=== PATIENT | female | born 1995 | race African-American/Black ===

== ENCOUNTER 2020-12-16 11:33 | Emergency (ER) | payer OTHER ==
[2020-12-16 11:58] VITALS: BMI 26.7
[2020-12-16 13:12] LABS: EPI CELLS >36 /uL (0-25.1); HYALINE CASTS 14 /uL (0-3.1); URINE APPEARANCE CLOUDY; URINE BACTERIA 4186 /uL (0-1359); URINE BILIRUBIN NEGATIVE (NEGATIVE); URINE COLOR YELLOW; URINE GLUCOSE (UA) NEGATIVE (NEGATIVE); URINE KETONE TRACE (NEGATIVE); URINE LEUK ESTERASE 2+ (NEGATIVE); URINE NITRITE NEGATIVE (NEGATIVE); URINE PROTEIN TRACE (NEGATIVE); URINE WBC 624 /uL (0-25.8)
[2020-12-16 14:38] VITALS: BP 107/65; PULSE 82; TEMP 98
== END 2020-12-16 14:56 | disposition home or self-care (01) ==
LOC: JER 11:33
DX: R10.2 Pelvic and perineal pain (principal); Z3A.16 16 weeks gestation of pregnancy
CPT/HCPCS: 76815-TC; 81003; 87086; 87186; 99284-25

== ENCOUNTER 2021-05-30 09:40 | Inpatient (IN) | payer OTHER ==
[2021-05-30] MEDS ORDERED: SODIUM CHLORIDE 100 ML IVPB ONE ×2 (10:45→15:46)
[2021-05-30] MEDS ORDERED: AMPICILLIN SODIUM 2 GM VIAL ONE (10:45)
[2021-05-30] MEDS ORDERED: AMPICILLIN - 2 GM in SODIUM CHLORIDE 100 ML IVPB ONE (11:30)
[2021-05-30 11:40] VITALS: BMI 34.0
[2021-05-30 11:41] LABS: BASO % 0.4 % (0-2.0); EOS % 0.1 % (0-4.5); HEMATOCRIT 35.2 % (32.4-45.2); HEMOGLOBIN 11.5 GM/dL (10.7-15.3); LYMPH % 14.4 % (8-40); MCH 28.7 pg (25.7-33.7); MCHC 32.6 g/dl (32.0-36.0); MEAN CELL VOLUME 88.2 fl (80-96); MEAN PLT VOLUME 9.7 fl (7.5-11.1); MONO % 9.6 % (3.8-10.2); NEUT % 75.5 % (42.8-82.8); PLATELET COUNT 224 10^3/uL (134-434); RBC 3.99 M/mm3 (3.60-5.2); WHITE BLOOD COUNT 13.8 K/mm3 (4.0-10.0)
[2021-05-30] MEDS: DEXTROSE 5%-LACTATED RINGERS 1,000 ML IV SCH (11:43)
[2021-05-30 11:46] LABS: INR 0.94 (0.83-1.09); PROTHROMBIN TIME (PATIENT) 10.8 SEC (9.7-13.0)
[2021-05-30 11:50] LABS: ACTIVATED PTT 27.2 SECONDS (25.2-36.5)
[2021-05-30 11:57] LABS: CALCIUM 9.3 mg/dL (8.5-10.1)
[2021-05-30 11:58] LABS: BLOOD UREA NITROGEN 10.4 mg/dL (7-18)
[2021-05-30 12:01] LABS: CREATININE 0.7 mg/dL (0.55-1.3)
[2021-05-30] MEDS ORDERED: AMPICILLIN SODIUM 1 GM VIAL ONE ×2 (15:46→19:35)
[2021-05-30] MEDS: AMPICILLIN - 1 GM in SODIUM CHLORIDE 100 ML IVPB SCH ×2 (16:00→20:00)
[2021-05-31] MEDS ORDERED: PROMETHAZINE HCL 25 MG/1 ML VIAL IVPUSH ONE (00:45)
[2021-05-31] MEDS ORDERED: BUTORPHANOL TARTRATE 1 MG/ML VIAL IVPUSH ONE (00:45)
[2021-05-31] MEDS ORDERED: AMPICILLIN SODIUM 1 GM VIAL ONE ×3 (00:48→07:45)
[2021-05-31] MEDS ORDERED: BUTORPHANOL TARTRATE 2 MG/ML VIAL ONE (03:49)
[2021-05-31] MEDS ORDERED: PROMETHAZINE HCL 25 MG/1 ML VIAL ONE (03:49)
[2021-05-31] MEDS: AMPICILLIN - 1 GM in SODIUM CHLORIDE 100 ML IVPB SCH ×3 (04:00→07:48)
[2021-05-31] MEDS: DEXTROSE 5%-LACTATED RINGERS 1,000 ML IV SCH (04:42)
[2021-05-31] MEDS ORDERED: LIDOCAINE HCL 1% PRESERVATIVE FREE - 30ML VIAL ONE (07:17)
[2021-05-31] MEDS ORDERED: OXYTOCIN 20 UNITS in 0.9% NS 20 UNIT/1,000 ML INFUS.BAG IV ONE (07:17)
[2021-05-31] MEDS ORDERED: SODIUM CHLORIDE 100 ML IVPB ONE (07:45)
[2021-05-31] MEDS ORDERED: OXYTOCIN 30 UNITS in 0.9% NS 30 UNIT/500 ML INFUS.BAG IVPB ONE (07:56)
[2021-05-31] MEDS ORDERED: OXYTOCIN 30 UNITS in 0.9% NS 30 UNIT/500 ML INFUS.BAG IVPB SCH (08:00)
[2021-05-31] MEDS ORDERED: OXYTOCIN 20 UNITS in 0.9% NS 20 UNIT/1,000 ML INFUS.BAG IV SCH ×2 (08:40→11:30)
[2021-05-31] MEDS ORDERED: ACETAMINOPHEN INJECTION 100 ML IVPB ONE (10:31)
[2021-05-31] MEDS ORDERED: ACETAMINOPHEN 1000 MG/100 ML BAG IVPB ONE (11:00)
[2021-05-31] MEDS ORDERED: oxyCODONE HCL 5 MG TABLET PO PRN (11:20)
[2021-05-31] MEDS ORDERED: BENZOCAINE 28 GM HEMORRHOIDAL OINTMENT TP PRN (11:20)
[2021-05-31] MEDS ORDERED: METHYLERGONOVINE MALEATE 0.2 MG/1 ML AMP IM PRN (11:20)
[2021-05-31] MEDS ORDERED: BENZOCAINE 20% 57 GM BOTTLE TP PRN (11:20)
[2021-05-31] MEDS ORDERED: BISACODYL 10 MG SUPP.RECT RC PRN (11:20)
[2021-05-31] MEDS ORDERED: ACETAMINOPHEN 325 MG TABLET (FP) PO PRN (11:20)
[2021-05-31] MEDS ORDERED: WITCH HAZEL 50% (TUCKS) 40 PAD/JAR PAD TP PRN (11:20)
[2021-05-31] MEDS: IBUPROFEN 600 MG TABLET (FP) PO PRN (19:30)
[2021-06-01 09:58] LABS: BASO % 0.2 % (0-2.0); EOS % 0.1 % (0-4.5); HEMATOCRIT 30.2 % (32.4-45.2); HEMOGLOBIN 9.6 GM/dL (10.7-15.3); LYMPH % 21.1 % (8-40); MCH 28.4 pg (25.7-33.7); MCHC 31.7 g/dl (32.0-36.0); MEAN CELL VOLUME 89.7 fl (80-96); MEAN PLT VOLUME 10.3 fl (7.5-11.1); MONO % 8.9 % (3.8-10.2); NEUT % 69.7 % (42.8-82.8); PLATELET COUNT 199 10^3/uL (134-434); RBC 3.36 M/mm3 (3.60-5.2); RDW 16.2 % (11.6-15.6); WHITE BLOOD COUNT 14.1 K/mm3 (4.0-10.0)
[2021-06-01 18:27] LABS: EPI CELLS 22 /uL (0-25.1); HYALINE CASTS 1 /uL (0-3.1); URINE APPEARANCE CLEAR; URINE BACTERIA 31 /uL (0-1359); URINE BILIRUBIN NEGATIVE (NEGATIVE); URINE COLOR YELLOW; URINE GLUCOSE (UA) NEGATIVE (NEGATIVE); URINE KETONE NEGATIVE (NEGATIVE); URINE LEUK ESTERASE 1+ (NEGATIVE); URINE NITRITE NEGATIVE (NEGATIVE); URINE PROTEIN NEGATIVE (NEGATIVE); URINE RBC 506 /uL (0-23.9); URINE UROBILINOGEN 0.2 mg/dL (0.2-1.0); URINE WBC 94 /uL (0-25.8)
[2021-06-01] MEDS: IBUPROFEN 600 MG TABLET (FP) PO PRN (20:28)
[2021-06-01] MEDS ORDERED: SENNOSIDES/DOCUSATE COMBO (SENNA PLUS) TABLET (UD) PO PRN (22:00)
[2021-06-02 10:11] VITALS: BP 122/76; PULSE 80; TEMP 98.2
== END 2021-06-02 14:00 | disposition home or self-care (01) | DRG 560 ==
LOC: JDEL 09:40 → JLDR 10:47 → J3W 05-31 11:55
PROVIDERS: ADMIT Obstetrics & Gynecology; ATTEND Obstetrics & Gynecology
PROC: 0KQM0ZZ Repair Perineum Muscle, Open Approach (ICD-10-PCS; principal; 2021-05-31)
PROC: 10E0XZZ Delivery of Products of Conception, External Approach (ICD-10-PCS; 2021-05-31)
DX: O42.02 Full-term premature rupture of membranes, onset of labor within 24 hours of rupture (principal); O70.1 Second degree perineal laceration during delivery; O99.824 Streptococcus B carrier state complicating childbirth; B95.1 Streptococcus, group B, as the cause of diseases classified elsewhere; Z3A.39 39 weeks gestation of pregnancy; Z37.0 Single live birth
CPT/HCPCS: 36415; 59409; 80048; 81003; 82962; 85025; 85610; 85730; 86780; 86850; 86900; 86901; C9803; J0131; U0003; U0005